=== PATIENT | female | born 1995 | race Caucasian/White ===

== ENCOUNTER 2017-03-30 20:36 | Emergency (ER) | payer BC, OTHER | END 2017-03-30 22:05 | disposition home or self-care (01) | LOC: ER1 20:36 | DX: L02.31 Cutaneous abscess of buttock (principal); Z86.711 Personal history of pulmonary embolism; Z90.49 Acquired absence of other specified parts of digestive tract; Z79.01 Long term (current) use of anticoagulants | CPT/HCPCS: 10061; 87070; 87077; 87186; 87205; 99282 ==